=== PATIENT | female | born 1980 | race Caucasian/White ===

== ENCOUNTER 2017-10-27 13:26 | Emergency (ER) | payer OTHER, SELFPAY ==
[2017-10-27 13:27] VITALS: BP 143/85; PULSE 63; RESP 16; TEMP 36.9; O2SAT 95; BMI 41.5
--- NOTE | 2017-10-27 13:46 | EKG12_ITS ---
Test Reason : CP Blood Pressure : / mmHG Vent. Rate : 055 BPM Atrial Rate : 055 BPM P-R Int : 134 ms QRS Dur : 090 ms QT Int : 460 ms P-R-T Axes : 031 020 024 degrees QTc Int : 440 ms Sinus bradycardia Otherwise normal ECG Confirmed by PAULO VALERO ([id number]), editorial cartoonist TRUMAN GUZMAN ([id number]) on 11/01/2017 2:05:25 PM Referred By: TONYA Confirmed By:PAULO VALERO
--- NOTE | 2017-10-27 13:46 | RAD_ITS ---
STUDY: X-RAY CHEST REASON FOR EXAM: Female, 37 years old. One-week history of cough and generalized fatigue. TECHNIQUE: PA and lateral views of the chest. COMPARISON: None. FINDINGS: The lungs are clear and expanded. Scattered calcified granulomas. There is no demonstrated pleural abnormality. Normal size heart. Normal mediastinum and kal. Normal visualized pulmonary arteries. Normal visualized aortic arch and descending thoracic aorta. Normal visualized thoracic spine. Normal visualized ribs, clavicles, and shoulders. There is no demonstrated abnormality of the visualized soft tissue structures of the upper abdomen. RAD/Chest PA and Lateral IMPRESSION: Normal x-ray examination of the chest. Electronically Signed: Amish Husain MD at 14:36 EDT Tel [phone], Service support ,
--- NOTE | 2017-10-27 13:48 | ED.VISSUMM ---
- ER Visit Summary Date of Service: 10/27/17 Chief Complaint: Fatigue History of Present Illness: The patient is a 37 F no significant past medical history other than anxiety. Patient states she was recently treated for sinusitis and is on amoxicillin. States she has just been overall exhausted. She had some nausea vomiting which resolved. She had a cough which is resolved. She denies chest pain. She has said she had some mild headaches but they are not severe. She was treated at an urgent care center ER for further evaluation. She denies any dysuria. No melena. Physical Examination: Well appearing female. Vital signs are stable afebrile. Pulse ox 95% room air no signs of hypoxia. H EENT exam unremarkable. Neck nontender no lymphadenopathy. No thyromegaly. Lungs clear to auscultation bilaterally. Heart regular rate and rhythm no murmur. Abdomen soft nontender. Normal bowel sounds no peritoneal signs. Extremities moving all 4. Neurovascular intact. Calves nontender. No edema no cords. Neurologically she is awake and alert with no focal motor deficits. Test Results: Normal. White count of 5 H&H 1442. BMP normal. Normal gap and creatinine. TSH normal. EKG sinus rhythm rate of 65 no acute signs of [place] or ischemia. Chest x-ray AP lateral view is normal read both myself and radiologist. No infiltrate and normal cardiac silhouette. Orthostatic vital signs were negative. Emergency Department Course and Treatment: She with fatigue of uncertain etiology will be worked up with labs, TSH and chest x-ray and EKG. Her exam is basically unremarkable. Treatment Plan: Repeat exam at work: 16:10 is doing well. Exam unchanged. I went over all test results with her and her family member and will be discharged home. Disposition: Discharge Impression: Fatigue Viral syndrome This note was generated with centrose dictation software. It may contain incorrect words, spelling, and punctuation that were not noted in review of the chart prior to signing ED Disposition - Plan for ED Patient: Chief Complaint: Fatigue Referrals: [facility],Out of [NON-STAFF] -
--- NOTE | 2017-10-27 13:51 | ED.DCSUM_ITS ---
- ER Visit Summary Date of Service: 10/27/17 Chief Complaint: Fatigue History of Present Illness: The patient is a 37 F no significant past medical history other than anxiety. Patient states she was recently treated for sinusitis and is on amoxicillin. States she has just been overall exhausted. She had some nausea vomiting which resolved. She had a cough which is resolved. She denies chest pain. She has said she had some mild headaches but they are not severe. She was treated at an urgent care center ER for further evaluation. She denies any dysuria. No melena. Physical Examination: Well appearing female. Vital signs are stable afebrile. Pulse ox 95% room air no signs of hypoxia. H EENT exam unremarkable. Neck nontender no lymphadenopathy. No thyromegaly. Lungs clear to auscultation bilaterally. Heart regular rate and rhythm no murmur. Abdomen soft nontender. Normal bowel sounds no peritoneal signs. Extremities moving all 4. Neurovascular intact. Calves nontender. No edema no cords. Neurologically she is awake and alert with no focal motor deficits. Test Results: Normal. White count of 5 H&H 1442. BMP normal. Normal gap and creatinine. TSH normal. EKG sinus rhythm rate of 65 no acute signs of [place] or ischemia. Chest x-ray AP lateral view is normal read both myself and radiologist. No infiltrate and normal cardiac silhouette. Orthostatic vital signs were negative. Emergency Department Course and Treatment: She with fatigue of uncertain etiology will be worked up with labs, TSH and chest x-ray and EKG. Her exam is basically unremarkable. Treatment Plan: Repeat exam at work: 16:10 is doing well. Exam unchanged. I went over all test results with her and her family member and will be discharged home. Disposition: Discharge Impression: Fatigue Viral syndrome This note was generated with [employer] dictation software. It may contain incorrect words, spelling, and punctuation that were not noted in review of the chart prior to signing ED Disposition - Plan for ED Patient: Chief Complaint: Fatigue Referrals: [facility],Out of [NON-STAFF] -
[2017-10-27 13:52] VITALS: BP 135/75; BP 143/80; BP 146/80; PULSE 63; PULSE 65; RESP 14; O2SAT 98
--- NOTE | 2017-10-27 13:57 | NURSING ---
NO OLD EKGS
[2017-10-27] MEDS: 0.9% Normal Saline 1,000 ML 1000 ML IV (14:05)
[2017-10-27 14:19] LABS: Absolute Lymphocyte Count 2.09 X10^3/ul (0.83-4.51); Absolute Neutrophil Count 2.5 X10^3/uL (2.0-7.7); Basophil# 0.03 X10^3/uL; Basophil% 0.6 % (0-1); Eosinophil# 0.21 X10^3/uL; Eosinophils% 3.9 % (0-5); Hematocrit 42.1 % (37-47); Hemoglobin 14.1 g/dl (12.0-15.0); Lymphocyte # 2.09 X10^3/ul (4.0); Lymphocyte % 38.5 % (19-41); Mean Corp Hgb Conc 33.5 g/gl (32-36); Mean Corpuscular Hgb 31.9 pg (27.0-32.0); Mean Corpuscular Volume 95.2 fL (81-99); Mean Platelet Vol. 9.7 fl (6.2-12.0); Monocyte# 0.59 X10^3/uL; Monocyte% 10.9 % (0-10); Neutrophil % 45.9 % (47-70); Platelet Count 232 K/mm3 (150-450); RBC Distribution Width CV 12.8 % (11.6-14.6); RBC Distribution Width SD 43.7 fl (35.1-43.9); Red Blood Count 4.42 M/mm3 (4.2-5.4); White Blood Count 5.4 K/mm3 (4.4-11.0)
[2017-10-27 14:20] LABS: POSITIVE COUNT NO; POSITIVE DIFFERENTIAL NO; POSITIVE MORPHOLOGY NO
[2017-10-27 14:39] LABS: Anion Gap 9 (5-15); BUN 11 mg/dL (7-18); BUN/Creat Ratio 16.3 RATIO (10-20); Calcium,Total 8.6 mg/dL (8.5-10.1); Chloride 101 mmol/L (98-107); Creatinine, Serum 0.68 mg/dL (0.55-1.02); EST Glomerular Filtration Rate 104 mL/min (>60); Est Glom Filt Rate - Afr Amer 126 mL/min (>60); Estimated Creatinine Clearance 97.81 ml/min; Glucose 86 mg/dL (74-106); Potassium 3.8 mmol/L (3.5-5.1); Sodium Level 138 mmol/L (136-145); Thyroid Stim Hormone (TSH) 2.24 uIU/mL (0.358-3.74)
--- NOTE | 2017-10-27 16:12 | ED.DEP ---
ED Disposition - Plan for ED Patient: Disposition: Home or Assisted Living Chief Complaint: Fatigue Instructions: ED Viral Syndrome Referrals: [facility],Out of [NON-STAFF] - 3-5 Days if not improving Additional Instructions: Plenty of fluids and rest. Follow-up your primary care physician as needed. All your tests today including chest x-ray, EKG, CBC, BMP and thyroid tests were all normal.
[2017-10-27 16:23] VITALS: BP 116/61; PULSE 64; RESP 16; O2SAT 98
--- NOTE | 2017-10-27 16:23 | ED.RN ---
REVIEWED D/C INSTRUCTIONS, FOLLOW UP CARE, AND S/S THAT WOULD WARRANT A RETURN TO THE ED WITH PT. PT VERBALIZED AN UNDERSTANDING AND DENIES FURTHER QUESTIONS FOR THIS RN. PT SKIN P/W/D, RESP EVEN AND UNLABORED, PT A&O X 3, NO DISTRESS NOTED. PT AMBULATED OUT OF ED, GAIT STEADY.
== END 2017-10-27 16:24 | disposition home or self-care (01) ==
PROVIDERS: Emergency Provider Emergency Medicine; Family Provider Family Medicine; PCP Family Medicine
DX: R53.83 Other fatigue (principal); B34.9 Viral infection, unspecified; R51 Headache; Z72.0 Tobacco use
CPT/HCPCS: 71046; 80048; 84443; 85025; 93005; 96360; 96361; 99285; J7030